=== PATIENT | female | born 1985 | race American Indian/Alaskan Native ===

== ENCOUNTER 2019-02-18 17:15 | Observation (INO) | payer BC ==
[2019-02-18 18:58] LABS: Mean Corpuscular HGB Conc 28 % (30-34); Platelet Count 262 K/mm3 (140-440); Red Blood Count 3.05 M/mm3 (3.65-5.03)
--- NOTE | 2019-02-18 18:59 | Emergency Department Report ---
ED General Adult HPI - General Chief complaint: Recheck/Abnormal Lab/Rx Stated complaint: IRON LOW Time Seen by Provider: 02/18/19 18:50 Source: patient Mode of arrival: Ambulatory Limitations: No Limitations - History of Present Illness Initial comments: Patient is 33 years old female with no significant past medical history. Patient stated that she went to have a physical exam at her new primary care physician physician. Patient found to have a hemoglobin of 4.4 and patient sent and strayed from her primary care physician to the ER for further evaluation. Patient denies stated that she is having trouble with her cycle. She stated that her sciatica Continuum between 8-10 days, heavy associated with pelvic area cramping. Patient currently denying any chest pain but she stated that she usually get out of breath when she walk for a minute. Patient denied any hematemesis, melena or hematochezia. No hemoptysis or hematuria. - Related Data Home Medications Medication Instructions Recorded Confirmed Last Taken No Known Home Medications [No 02/18/19 02/18/19 Unknown Reported Home Medications] Allergies Allergy/AdvReac Type Severity Reaction Status Date / Time No Known Allergies Allergy Unverified 02/18/19 17:27 ED Review of Systems ROS: Stated complaint: IRON LOW Other details as noted in HPI Comment: All other systems reviewed and negative Constitutional: denies: chills, fever Respiratory: shortness of breath Cardiovascular: denies: chest pain, palpitations Gastrointestinal: denies: abdominal pain, nausea, vomiting, hematemesis, melena, hematochezia Genitourinary: abnormal menses. denies: urgency, dysuria, frequency, hematuria, discharge Musculoskeletal: denies: back pain Neurological: denies: headache, weakness, numbness, paresthesias, confusion, abnormal gait ED Past Medical Hx - Past Medical History Previous Medical History?: No - Surgical History Past Surgical History?: No - Social History Smoking Status: Never Smoker Substance Use Type: None - Medications Home Medications: Home Medications Medication Instructions Recorded Confirmed Last Taken Type No Known Home Medications [No 02/18/19 02/18/19 Unknown History Reported Home Medications] ED Physical Exam - General Limitations: No Limitations General appearance: alert, in no apparent distress - Head Head exam: Present: atraumatic, normocephalic, normal inspection - Eye Eye exam: Present: other (pale conjuctiva) - ENT ENT exam: Present: normal exam, normal orophraynx, mucous membranes moist - Neck Neck exam: Present: normal inspection, full ROM. Absent: tenderness, meningismus, lymphadenopathy, thyromegaly - Respiratory Respiratory exam: Present: normal lung sounds bilaterally - Cardiovascular Cardiovascular Exam: Present: regular rate, normal rhythm, normal heart sounds - GI/Abdominal GI/Abdominal exam: Present: soft, normal bowel sounds. Absent: distended, tenderness, guarding, rebound, rigid, organomegaly, mass, bruit, pulsatile mass, hernia - Extremities Exam Extremities exam: Present: normal inspection, full ROM, normal capillary refill. Absent: tenderness, pedal edema, calf tenderness - Back Exam Back exam: Present: normal inspection, full ROM. Absent: tenderness, CVA tenderness (R), CVA tenderness (L), muscle spasm, paraspinal tenderness, vertebral tenderness - Neurological Exam Neurological exam: Present: alert, oriented X3, CN II-XII intact, normal gait, reflexes normal - Psychiatric Psychiatric exam: Present: normal mood - Skin Skin exam: Present: warm, intact, normal color ED Course Vital Signs 02/18/19 02/18/19 02/18/19 17:52 19:05 21:01 Temperature 98.5 F 98.2 F 98.5 F Pulse Rate 88 83 87 Respiratory 16 19 21 Rate Blood Pressure 118/67 129/70 Blood Pressure 125/65 [Left] O2 Sat by Pulse 100 99 100 Oximetry 02/18/19 02/18/19 02/18/19 21:15 21:16 21:31 Temperature 98.2 F 98.2 F Pulse Rate 80 82 84 Respiratory 16 21 18 Rate Blood Pressure 127/61 127/61 124/69 Blood Pressure [Left] O2 Sat by Pulse 100 100 100 Oximetry 02/18/19 02/18/19 02/18/19 21:45 22:01 22:15 Temperature Pulse Rate 82 92 H 91 H Respiratory 25 H 14 17 Rate Blood Pressure 133/83 132/100 135/75 Blood Pressure [Left] O2 Sat by Pulse 100 99 100 Oximetry 02/18/19 02/18/19 02/18/19 22:21 22:30 22:35 Temperature 98.2 F 98.8 F Pulse Rate 92 H 94 H 92 H Respiratory 35 H 15 18 Rate Blood Pressure 135/75 133/83 110/87 Blood Pressure 133/83 [Left] O2 Sat by Pulse 99 99 100 Oximetry ED Medical Decision Making - Lab Data Result diagrams: 02/18/19 18:32 02/18/19 18:32 - Radiology Data Radiology results: report reviewed Referring Physician: CIERA SUAREZ Patient Name: CARRIE WEBB Date of : 1985 Sex: Female Report Date: 2019-02-18 Report Status: [place] [address] Ultrasound Report Signed Patient: CARRIE WEBB MR#: [id number] : 1985 Acct:[id number] Age/Sex: 33 / F ADM Date: 02/18/19 Loc: ED Attending Dr: Ordering Physician: CIERA SUAREZ Date of Service: 02/18/19 Procedure(s): US pelvic complete Accession Number(s): [id number] cc: CIERA SUAREZ Pelvic ultrasound complete INDICATION: Pelvic pain FINDINGS: There is a large 8.0 cm well-circumscribed lesion arising from the left upper aspect of the uterine fundus. Some internal Doppler flow noted. Both ovaries appear normal with normal Doppler flow. Minimal free pelvic fluid is likely physiologic IMPRESSION: Large 8 cm fibroid within the left upper aspect of the uterine fundus, as above Signer Name: Glynn Claros MD Signed: 02/18/2019 8:35 PM Workstation Name: [id number] Transcribed By: BC Dictated By: Glynn Claros MD Electronically Authenticated By: Glynn Claros MD Signed Date/Time: 02/18/192034 DD/ 28 TD/TT: - Medical Decision Making Patient is 33 years old female with no significant past medical history. Patient stated that she went to have a physical exam at her new primary care physician orthopedist. Patient found to have a hemoglobin of 4.4 and patient sent and strayed from her primary care physician to the ER for further evaluation. Patient denies stated that she is having trouble with her cycle. She stated that her sciatica Continuum between 8-10 days, heavy associated with pelvic area cramping. Patient currently denying any chest pain but she stated that she usually get out of breath when she walk for a minute. Patient denied any hematemesis, melena or hematochezia. No hemoptysis or hematuria. Patient H&H is 4.6. Patient received 1 units of PRBC. Pelvic ultrasound showed 8 centimeter fibroid. Patient is not actively bleeding now. I discussed the patient with Dr. Sylvia Feliciano, she agreed to admit the patient to medical service. Critical Care Time: Yes Critical care time in (mins) excluding proc time.: 30 Critical care attestation.: If time is entered above; I have spent that time in minutes in the direct care of this critically ill patient, excluding procedure time. ED Disposition Clinical Impression: Acute blood loss anemia Disposition: DC09 OP ADMIT IP TO THIS HOSP Is pt being admited?: Yes Condition: Stable
[2019-02-18 19:10] LABS: Hematocrit 16.6 % (30.3-42.9); Hemoglobin 4.6 gm/dl (10.1-14.3); Mean Corpuscular Volume 54 fl (79-97); Red Cell Distribution Width 23.6 % (13.2-15.2)
[2019-02-18] MEDS ORDERED: SODIUM CHLORIDE 0.9% 500 ML 500 ML IV ONE ×2 (19:20→22:12)
[2019-02-18 19:21] LABS: Alanine Aminotransferase 12 units/L (7-56); Albumin 4.1 g/dL (3.9-5); BUN/Creatinine Ratio 14; Blood Urea Nitrogen 7 mg/dL (7-17); Calcium 9.1 mg/dL (8.4-10.2); Hemolysis Index 2
[2019-02-18 19:58] LABS: HCG Qualitative,Urine Negative (Negative)
[2019-02-18 20:01] LABS: Bacteria,Urine 1+ /HPF (Negative); Bilirubin,Urine NEG (Negative); Blood,Urine NEG (Negative); Color,Urine Straw (Yellow); Mucus,Urine FEW /HPF; Protein,Urine <15 mg/dL mg/dL (Negative); Urobilinogen,Urine < 2.0 mg/dL (<2.0)
--- NOTE | 2019-02-18 20:40 | Ultrasound Report ---
Pelvic ultrasound complete INDICATION: Pelvic pain FINDINGS: There is a large 8.0 cm well-circumscribed lesion arising from the left upper aspect of the uterine fundus. Some internal Doppler flow noted. Both ovaries appear normal with normal Doppler myah w. Minimal free pelvic fluid is likely physiologic IMPRESSION: Large 8 cm fibroid within the left upper aspect of the uterine fundus, as above Signer Name: Glynn Claors MD Signed: 02/18/2019 8:35 PM Workstation Name: [id number]
[2019-02-18 21:08] LABS: INR 1.04 (0.87-1.13)
[2019-02-18 21:23] LABS: INR 1.03 (0.87-1.13); Partial Thromboplastin Time 22.6 Sec. (24.2-36.6)
--- NOTE | 2019-02-18 22:14 | History and Physical Report ---
History of Present Illness Date of examination: 02/18/19 History of present illness: 33-year-old woman with no medical problems was sent to the emergency room for evaluation of anemia. Her blood count in her primary care's office was 4.4. Patient state that over the last 4 months she's been having shortness of breath, dyspnea on exertion, tired. She menstrual flow last from 4-10 days, sometimes bleed between cycle Review Of Systems: Constitutional: no weight loss, fever, chills Ears, eyes, nose, mouth and throat: no nasal congestion, no nasal discharge, no sinus pressure, blurry vision, diplopia Neck: No neck pain or rigidity. Cardiovascular: No palpitations, chest pain Respiratory: No cough Gastrointestinal: No hematochezia, abdominal pain Genitourinary : no dysuria, frequency , hematuria Musculoskeletal: no muscle ache , joint pain Integumentary: no rash, no pruritis Neurological: no parathesias, focal weakness Endocrine: no cold or heat intolerance, no polyuria or polydipsia Hematologic/Lymphatic: no easy bruising, no easy bleeding, no gland swelling Allergic/Immunologic: no urticaria, no angioedema. PAST MEDICAL HISTORY:None PAST SURGICAL HISTORY:None FAMILY HISTORY:hypertension, diabetes SOCIAL HISTORY: Denies tobacco, +marijuana, no alcohol Medications and Allergies Allergies Allergy/AdvReac Type Severity Reaction Status Date / Time No Known Allergies Allergy Unverified 02/18/19 17:27 Home Medications Medication Instructions Recorded Confirmed Last Taken Type No Known Home Medications [No 02/18/19 02/18/19 Unknown History Reported Home Medications] Exam - Physical Exam Narrative exam: General Apperance: The patient sitting in bed no acute distress HEENT: Normocephalic, atraumatic. Pupils equally round and reactive to light, extraocular movement intact, and no sclericterus or JVD or thyromegaly or nodule. Neck supple, no carotid bruit, mucous membranes moist, no exudate or erythema Heart: S1-S2, regular is rhythm Lungs: Clear to auscultation bilaterally, breathing comfortable Abdomen: Positive bowel sounds, soft, nontender, nondistended, no organomegaly Extremities: No edema cyanosis clubbing Skin: no rash, nodule, warm and dry Neuro:CN 2 -12 intact, motor/sensory intact, speech is fluent - Constitutional Vitals: Temp Pulse Resp BP Pulse Ox 98.2 F 81 21 124/69 100 02/18/19 21:31 02/18/19 21:31 02/18/19 21:31 02/18/19 21:31 02/18/19 21:31 Results - Labs CBC & Chem 7: 02/18/19 18:32 02/18/19 18:32 Labs: Abnormal lab results 02/18/19 02/18/19 02/18/19 Range/Units 18:32 18:32 18:39 RBC 3.05 L (3.65-5.03) M/mm3 Hgb 4.6 L* (10.1-14.3) gm/dl Hct 16.6 L* (30.3-42.9) % MCV 54 L (79-97) fl MCH 15 L (28-32) pg MCHC 28 L (30-34) % RDW 23.6 H (13.2-15.2) % APTT (24.2-36.6) Sec. Carbon Dioxide 20 L (22-30) mmol/L Creatinine 0.5 L (0.7-1.2) mg/dL Crossmatch See Detail 02/18/19 02/18/19 Range/Units 20:41 20:41 RBC (3.65-5.03) M/mm3 Hgb (10.1-14.3) gm/dl Hct (30.3-42.9) % MCV (79-97) fl MCH (28-32) pg MCHC (30-34) % RDW (13.2-15.2) % APTT 22.6 L 23.0 L (24.2-36.6) Sec. Carbon Dioxide (22-30) mmol/L Creatinine (0.7-1.2) mg/dL Crossmatch Assessment and Plan pelvic US reviewed Assessment Symptomatic anemia Menorrhagia Plan Admit to medicine Transfuse blood, consult STREET VENDOR DVT prophalaxis
[2019-02-18] MEDS ORDERED: ONDANSETRON 4 MG/2 ML INJ IV PRN (23:05)
[2019-02-18] MEDS ORDERED: ACETAMINOPHEN 325 MG TAB PO PRN (23:05)
[2019-02-18] MEDS ORDERED: ZOLPIDEM 5 MG TAB PO PRN (23:07)
[2019-02-18] MEDS ORDERED: diphenhydrAMINE 50 MG/ML VIAL IV PRN (23:07)
[2019-02-19 10:33] LABS: Mean Corpuscular HGB Conc 29 % (30-34); Platelet Count 283 K/mm3 (140-440); Red Blood Count 4.18 M/mm3 (3.65-5.03)
[2019-02-19 10:35] LABS: Hemoglobin 7.5 gm/dl (10.1-14.3); Mean Corpuscular Volume 62 fl (79-97)
[2019-02-19 10:47] LABS: BUN/Creatinine Ratio 16; Blood Urea Nitrogen 8 mg/dL (7-17); Calcium 9.1 mg/dL (8.4-10.2); Hemolysis Index 12
[2019-02-19 12:25] LABS: Anisocytosis 3+; Basophils % (Manual) 0 % (0.0-1.8); Hypochromasia 3+; Platelet Estimate Consistent w Auto; Tear Drop Cells Few; Total Cells Counted 100
[2019-02-19 13:21] VITALS: BP 120/66
--- NOTE | 2019-02-19 13:58 | Progress Note ---
Assessment and Plan Assessment and plan: Severe symptomatic anemia due to menorrhagia - Patient was transfused with 2 units of blood and hemoglobin this morning 7.5 admission hemoglobin was 4.6 - Continue to monitor, iron tablets Menorrhagia due to uterine fibroids - Pelvic ultrasound showed 8 cm fibroid - FLOOR WAXER consulted DVT prophylaxis - SCDs because of severe anemia/menorrhagia Disposition - Possible discharge if cleared by PRODUCE DEPARTMENT SUPERVISOR History Interval history: Patient was seen and evaluated this morning. She didn't have any complaints. Hospitalist Physical - Physical exam Narrative exam: Not in cardiopulmonary distress. The patient is obese. Vital signs as documented. Head exam is unremarkable. No scleral icterus . Neck is without jugular venous distension, thyromegaly, or carotid bruits. Lungs are clear to auscultation. Cardiac exam reveals regular rate and Rhythm. First and second heart sounds normal. No murmurs, rubs or gallops. Abdominal exam reveals normal bowel sounds, no masses, no organomegaly and no aortic enlargement. Extremities are nonedematous and both femoral and pedal pulses are normal. DIRECTOR MOBILE MEDIA SOLUTIONS: Alert and oriented 3. No focal weakness. - Constitutional Vitals: Temp Pulse Resp BP Pulse Ox 97.7 F 76 20 120/66 99 02/19/19 11:28 02/19/19 11:28 02/19/19 11:28 02/19/19 11:28 02/19/19 11:28 Results - Labs CBC & Chem 7: 02/19/19 09:39 02/19/19 09:39 Labs: Laboratory Last Values WBC 6.9 K/mm3 (4.5-11.0) 02/19/19 09:39 RBC 4.18 M/mm3 (3.65-5.03) 02/19/19 09:39 Hgb 7.5 gm/dl (10.1-14.3) L 02/19/19 09:39 Hct 26.0 % (30.3-42.9) L D 02/19/19 09:39 MCV 62 fl (79-97) L 02/19/19 09:39 MCH 18 pg (28-32) L 02/19/19 09:39 MCHC 29 % (30-34) L 02/19/19 09:39 RDW 32.0 % (13.2-15.2) H 02/19/19 09:39 Plt Count 283 K/mm3 (140-440) 02/19/19 09:39 Lymph % (Auto) [employer] Processing Factory Worker 02/19/19 09:39 [place] % (Auto) [employer] Factory Worker 02/19/19 09:39 Eos % (Auto) [employer] Worker 02/19/19 09:39 Baso % (Auto) [employer] Worker 02/19/19 09:39 Lymph # [employer] Worker 02/19/19 09:39 [place] # [employer] Factory Worker 02/19/19 09:39 Eos # [employer] Factory Worker 02/19/19 09:39 Baso # [employer] Worker 02/19/19 09:39 Add Manual Diff Complete 02/19/19 09:39 Total Counted 100 02/19/19 09:39 Seg Neutrophils % [employer] Factory Worker 02/19/19 09:39 Seg Neuts % (Manual) 65.0 % (40.0-70.0) 02/19/19 09:39 0 % 02/19/19 09:39 27.0 % (13.4-35.0) 02/19/19 09:39 Reactive Lymphs % (Man) 0 % 02/19/19 09:39 7.0 % (0.0-7.3) 02/19/19 09:39 1.0 % (0.0-4.3) 02/19/19 09:39 0 % (0.0-1.8) 02/19/19 09:39 0 % 02/19/19 09:39 0 % 02/19/19 09:39 0 % 02/19/19 09:39 0 % 02/19/19 09:39 Nucleated RBC % Not Reportable 02/19/19 09:39 Seg Neutrophils # [employer] Worker 02/19/19 09:39 Seg Neutrophils # Man 4.5 K/mm3 (1.8-7.7) 02/19/19 09:39 Band Neutrophils # 0.0 K/mm3 02/19/19 09:39 1.9 K/mm3 (1.2-5.4) 02/19/19 09:39 Abs React Lymphs (Man) 0.0 K/mm3 02/19/19 09:39 0.5 K/mm3 (0.0-0.8) 02/19/19 09:39 0.1 K/mm3 (0.0-0.4) 02/19/19 09:39 0.0 K/mm3 (0.0-0.1) 02/19/19 09:39 0.0 K/mm3 02/19/19 09:39 0.0 K/mm3 02/19/19 09:39 0.0 K/mm3 02/19/19 09:39 Blast Cells # 0.0 K/mm3 02/19/19 09:39 WBC Morphology Not Reportable 02/19/19 09:39 Hypersegmented Neuts Not Reportable 02/19/19 09:39 Hyposegmented Neuts Not Reportable 02/19/19 09:39 Hypogranular Neuts Not Reportable 02/19/19 09:39 Not Reportable 02/19/19 09:39 Not Reportable 02/19/19 09:39 Not Reportable 02/19/19 09:39 Not Reportable 02/19/19 09:39 Not Reportable 02/19/19 09:39 Not Reportable 02/19/19 09:39 Consistent w auto 02/19/19 09:39 Not Reportable 02/19/19 09:39 Plt Clumps, EDTA Not Reportable 02/19/19 09:39 Not Reportable 02/19/19 09:39 Not Reportable 02/19/19 09:39 Not Reportable 02/19/19 09:39 Plt Morphology Comment Not Reportable 02/19/19 09:39 RBC Morphology Not Reportable 02/19/19 09:39 Dimorphic RBCs Not Reportable 02/19/19 09:39 Not Reportable 02/19/19 09:39 3+ 02/19/19 09:39 Not Reportable 02/19/19 09:39 3+ 02/19/19 09:39 2+ 02/19/19 09:39 Not Reportable 02/19/19 09:39 Not Reportable 02/19/19 09:39 Not Reportable 02/19/19 09:39 Not Reportable 02/19/19 09:39 Not Reportable 02/19/19 09:39 Few 02/19/19 09:39 Not Reportable 02/19/19 09:39 Not Reportable 02/19/19 09:39 Not Reportable 02/19/19 09:39 Not Reportable 02/19/19 09:39 Not Reportable 02/19/19 09:39 Not Reportable 02/19/19 09:39 Not Reportable 02/19/19 09:39 Few 02/19/19 09:39 Acanthocytes (Spur) Not Reportable 02/19/19 09:39 Rouleaux Not Reportable 02/19/19 09:39 Not Reportable 02/19/19 09:39 Not Reportable 02/19/19 09:39 Not Reportable 02/19/19 09:39 Not Reportable 02/19/19 09:39 Hem Pathologist Commnt No 02/19/19 09:39 PT 13.2 Sec. (12.2-14.9) 02/18/19 20:41 PT 13.3 Sec. (12.2-14.9) 02/18/19 20:41 INR 1.03 (0.87-1.13) 02/18/19 20:41 INR 1.04 (0.87-1.13) 02/18/19 20:41 APTT 22.6 Sec. (24.2-36.6) L 02/18/19 20:41 APTT 23.0 Sec. (24.2-36.6) L 02/18/19 20:41 Sodium 144 mmol/L (137-145) D 02/19/19 09:39 Potassium 3.8 mmol/L (3.6-5.0) 02/19/19 09:39 Chloride 108.4 mmol/L (98-107) H 02/19/19 09:39 Carbon Dioxide 17 mmol/L (22-30) L 02/19/19 09:39 22 mmol/L 02/19/19 09:39 BUN 8 mg/dL (7-17) 02/19/19 09:39 0.5 mg/dL (0.7-1.2) L 02/19/19 09:39 Estimated GFR > 60 ml/min 02/19/19 09:39 16 % 02/19/19 09:39 Glucose 116 mg/dL (65-100) H 02/19/19 09:39 Calcium 9.1 mg/dL (8.4-10.2) 02/19/19 09:39 0.80 mg/dL (0.1-1.2) 02/18/19 18:32 AST 19 units/L (5-40) 02/18/19 18:32 ALT 12 units/L (7-56) 02/18/19 18:32 38 units/L (35-129) 02/18/19 18:32 7.5 g/dL (6.3-8.2) 02/18/19 18:32 4.1 g/dL (3.9-5) 02/18/19 18:32 1.2 % 02/18/19 18:32 Straw (Yellow) 02/18/19 18:35 Clear (Clear) 02/18/19 18:35 6.0 (5.0-7.0) 02/18/19 18:35 Ur Specific [place] 1.009 (1.003-1.030) 02/18/19 18:35 <15 mg/dl mg/dL (Negative) 02/18/19 18:35 Neg mg/dL (Negative) 02/18/19 18:35 Neg mg/dL (Negative) 02/18/19 18:35 Neg (Negative) 02/18/19 18:35 Neg (Negative) 02/18/19 18:35 Ur Reducing Substances Not Reportable 02/18/19 18:35 Neg (Negative) 02/18/19 18:35 Not Reportable 02/18/19 18:35 < 2.0 mg/dL (<2.0) 02/18/19 18:35 Ur Leukocyte Esterase Sm (Negative) 02/18/19 18:35 3.0 /HPF (0.0-6.0) 02/18/19 18:35 1.0 /HPF (0.0-6.0) 02/18/19 18:35 U Epithel Cells (Auto) 3.0 /HPF (0-13.0) 02/18/19 18:35 1+ /HPF (Negative) 02/18/19 18:35 Few /HPF 02/18/19 18:35 Urine HCG, Qual Negative (Negative) 02/18/19 18:35 Blood Type B POSITIVE 02/18/19 18:39 Antibody Screen Negative 02/18/19 18:39 Crossmatch See Detail 02/18/19 18:39 Active Medications - Current Medications Current Medications: Generic Name Dose Route Start Last Admin Trade Name Freq PRN Reason Stop Dose Admin Acetaminophen 650 mg 02/18/19 23:05 02/19/19 00:40 Tylenol PO 650 mg Q4H PRN Administration Pain MILD(1-3)/Fever >100.5/BANSAL Diphenhydramine HCl 25 mg 02/18/19 23:07 Benadryl IV Q6H PRN Itching Ferrous Sulfate 325 mg 02/19/19 14:00 Feosol PO TID KAI Ondansetron HCl 4 mg 02/18/19 23:05 Zofran IV Q8H PRN Nausea And Vomiting Sodium Chloride 10 ml 02/19/19 10:00 Sodium Chloride Flush Syringe 10 Ml IV BID KAI Sodium Chloride 10 ml 02/18/19 23:05 Sodium Chloride Flush Syringe 10 Ml IV PRN PRN LINE FLUSH Zolpidem Tartrate 5 mg 02/18/19 23:07 Ambien PO QHS PRN Sleep
[2019-02-19] MEDS ORDERED: FERROUS SULFATE 325 MG TAB PO SCH (14:00)
--- NOTE | 2019-02-19 15:30 | Discharge Summary ---
Providers - Providers Date of Admission: 02/18/19 22:11 Date of discharge: 02/19/19 Attending physician: PLACIDO WOOD MD 02/18/19 23:05 Consult to Physician [CONS] Routine Comment: Consulting Provider: EDMAR GOMEZ Physician Instructions: Reason For Exam: menorrhagia/fibroid/ Primary care physician: COLON AND RECTAL SURGEON Hospitalization Reason for admission: severe anemia, menorrhagia secondary to uterine fibroid Condition: Stable Pertinent studies: Pelvic ultrasound Hospital course: 33-year-old -[place] female with medical history significant for menorrhagia was presented to the emergency department for the complaints of shortness of breath, leg swelling, dizziness. In the emergency department hemoglobin was 4.6. She was transfused 2 units of blood and post transfusion hemoglobin was 7.5. Patient's symptoms resolved. Pelvic ultrasound was done and showed 8 cm uterine fibroid. SCRIPT COORDINATOR was consulted and recommendations appreciated. Patient is hemodynamically stable and cleared for discharge by the INTERACTIVE DESIGNER. Appropriate medication scripts were given as the time of discharge. Patient's concerns and questions were addressed to the bedside. Disposition: DC-01 TO HOME OR SELFCARE Time spent for discharge: 32 minutes - Discharge Diagnoses (1) Acute blood loss anemia Status: Acute Core Measure Documentation - Palliative Care Palliative Care/ Comfort Measures: Not Applicable - Core Measures Any of the following diagnoses?: none Exam - Physical Exam Narrative exam: Not in cardiopulmonary distress. The patient is obese. Vital signs as documented. Head exam is unremarkable. No scleral icterus . Neck is without jugular venous distension, thyromegaly, or carotid bruits. Lungs are clear to auscultation. Cardiac exam reveals regular rate and Rhythm. First and second heart sounds normal. No murmurs, rubs or gallops. Abdominal exam reveals normal bowel sounds, no masses, no organomegaly and no aortic enlargement. Extremities are nonedematous and both femoral and pedal pulses are normal. HUMAN RESOURCES TRAINING MANAGER: Alert and oriented 3. No focal weakness. - Constitutional Vitals: Temp Pulse Resp BP Pulse Ox 97.7 F 76 20 120/66 99 02/19/19 11:28 02/19/19 11:28 02/19/19 11:28 02/19/19 11:28 02/19/19 11:28 Plan Activity: no restrictions Weight Bearing Status: Full Weight Bearing Diet: regular Follow up with: PRIMARY CAREMD [Primary Care Provider] - 7 Days
--- NOTE | 2019-02-19 15:37 | Consultation ---
History of Present Illness Consult date: 02/19/19 Reason for consult: menorrhagia History of present illness: This is a 33-year-old female 0 who presents with a long-standing history of menorrhagia. Patient states she started having heavy menstrual cycles approximately 10 years ago. Her cycles occur every 23-28 days however she bleeds 4-10 days with 3-4 heavy days. She presented to her primary care physician for evaluation and was noted to have a hemoglobin 4.4 and was sent immediately to the emergency room for evaluation. Ultrasound revealed an 8 cm fibroid. Patient states she is currently attempting to get . Since she's never been on hormonal therapy for bleeding she had any evaluation for the heavy bleeding. 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 denies: abnormal PAP smear, chlamydia, gonorrhea, hepatitis B, hepatitis C, herpes, HIV, syphilis Social history: smoking Medications and Allergies Allergies Allergy/AdvReac Type Severity Reaction Status Date / Time No Known Allergies Allergy Unverified 02/18/19 17:27 Home Medications Medication Instructions Recorded Confirmed Last Taken Type Ferrous Sulfate [Feosol 325 MG tab] 325 mg PO DAILY #90 tablet 02/19/19 Unknown Rx 147/Iron/Folic Acid 1 each PO DAILY #90 tablet 02/19/19 Unknown Rx [Azesco Tablet] Tranexamic Acid [Lysteda] 1,300 mg PO TID #30 tab 02/19/19 Unknown Rx Tranexamic Acid [Lysteda] 1,300 mg PO TID #30 tab 02/19/19 Unknown Rx Active Meds: Active Medications Acetaminophen (Tylenol) 650 mg PO Q4H PRN PRN Reason: Pain MILD(1-3)/Fever >100.5/BANSAL Last Admin: 02/19/19 00:40 Dose: 650 mg Documented by: Diphenhydramine HCl (Benadryl) 25 mg IV Q6H PRN PRN Reason: Itching Ferrous Sulfate (Feosol) 325 mg PO TID KAI Last Admin: 02/19/19 14:32 Dose: 325 mg Documented by: Ondansetron HCl (Zofran) 4 mg IV Q8H PRN PRN Reason: Nausea And Vomiting Sodium Chloride (Sodium Chloride Flush Syringe 10 Ml) 10 ml IV BID KAI Last Admin: 02/19/19 14:33 Dose: 10 ml Documented by: Sodium Chloride (Sodium Chloride Flush Syringe 10 Ml) 10 ml IV PRN PRN PRN Reason: LINE FLUSH Zolpidem Tartrate (Ambien) 5 mg PO QHS PRN PRN Reason: Sleep Review of Systems All systems: negative - Vital Signs Vital signs: Vital Signs Temp Pulse Resp BP Pulse Ox 98.5 F 88 16 118/67 100 02/18/19 17:52 02/18/19 17:52 02/18/19 17:52 02/18/19 17:52 02/18/19 17:52 Temp Pulse Resp BP Pulse Ox 97.7 F 76 20 120/66 99 02/19/19 11:28 02/19/19 11:28 02/19/19 11:28 02/19/19 11:28 02/19/19 11:28 Results Result Diagrams: 02/19/19 09:39 02/19/19 09:39 Abnormal lab results 02/18/19 02/18/19 02/18/19 Range/Units 18:32 18:32 18:39 RBC 3.05 L (3.65-5.03) M/mm3 Hgb 4.6 L* (10.1-14.3) gm/dl Hct 16.6 L* (30.3-42.9) % MCV 54 L (79-97) fl MCH 15 L (28-32) pg MCHC 28 L (30-34) % RDW 23.6 H (13.2-15.2) % APTT (24.2-36.6) Sec. Chloride (98-107) mmol/L Carbon Dioxide 20 L (22-30) mmol/L Creatinine 0.5 L (0.7-1.2) mg/dL Glucose (65-100) mg/dL Crossmatch See Detail 02/18/19 02/18/19 02/19/19 Range/Units 20:41 20:41 09:39 RBC (3.65-5.03) M/mm3 Hgb 7.5 L (10.1-14.3) gm/dl Hct 26.0 L D (30.3-42.9) % MCV 62 L (79-97) fl MCH 18 L (28-32) pg MCHC 29 L (30-34) % RDW 32.0 H (13.2-15.2) % APTT 22.6 L 23.0 L (24.2-36.6) Sec. Chloride (98-107) mmol/L Carbon Dioxide (22-30) mmol/L Creatinine (0.7-1.2) mg/dL Glucose (65-100) mg/dL Crossmatch 02/19/19 Range/Units 09:39 RBC (3.65-5.03) M/mm3 Hgb (10.1-14.3) gm/dl Hct (30.3-42.9) % MCV (79-97) fl MCH (28-32) pg MCHC (30-34) % RDW (13.2-15.2) % APTT (24.2-36.6) Sec. Chloride 108.4 H (98-107) mmol/L Carbon Dioxide 17 L (22-30) mmol/L Creatinine 0.5 L (0.7-1.2) mg/dL Glucose 116 H (65-100) mg/dL Crossmatch All other labs normal. Assessment and Plan Assessment: 1. Menorrhagia with occasional intermenstrual bleeding 2. Uterine fibroid 3. Infertility 4. Vitamins index 44 Plan 1. Agree with discharge home. Start Lysteda as directed as well as iron and vitamins. Patient is instructed to follow-up in our office for endometrial biopsy and further evaluation for menorrhagia and infertility. Plan of care was extensively discussed patient and her . Questions were encouraged and answered. She voiced understanding and desires to proceed with this current course of care.
== END 2019-02-19 17:30 | disposition home or self-care (01) ==
LOC: ED 17:15 → 3A 22:11
PROVIDERS: ADMIT Internal Medicine; ATTEND Internal Medicine
DX: D62 Acute posthemorrhagic anemia (principal); N92.0 Excessive and frequent menstruation with regular cycle; F12.10 Cannabis abuse, uncomplicated
CPT/HCPCS: 36415; 36430; 76856; 80048; 80053; 81001; 81025; 85007; 85025; 85027; 85610; 85730; 86850; 86900; 86901; 86920; 99291; G0378; J7040; P9016

== ENCOUNTER 2021-07-15 10:10 | Inpatient (IN) | payer BC, OTHER ==
[2021-07-15] MEDS ORDERED: fentaNYL 100 MCG/2 ML INJ IV ONE (10:14)
[2021-07-15] MEDS ORDERED: ASPIRIN 325 MG TAB PO ONE (10:14)
[2021-07-15] MEDS ORDERED: ONDANSETRON 4 MG/2 ML INJ IV ONE (10:14)
[2021-07-15] MEDS ORDERED: NITROGLYCERIN 2% OINT 1 GM TP ONE (10:14)
--- NOTE | 2021-07-15 10:22 | Emergency Department Report ---
HPI - General Time Seen by Provider: 07/15/21 10:13 - HPI HPI: Room 22 The patient is a 35-year-old female present with a chief complaint of chest pain. Patient states she developed some left-sided chest pain yesterday but it resolved. Patient states this morning she again developed substernal chest pain while at rest in addition to shortness of breath. Patient denies naus ea/vomiting or diaphoresis with the pain. Patient denies history of cough or fever. Patient denies having any past medical history and states he is never had a stress test or cardiac catheterization. Patient denies red blood per rectum or melena. Patient admits to heavy cycles going through 5-6 pads per day and on average lasting 5 to 6 days. Patient states her last cycle occurred 07/11/2021 ED Past Medical Hx - Past Medical History Previous Medical History?: No - Surgical History Past Surgical History?: No - Family History Family history: no significant - Social History Smoking Status: Never Smoker Substance Use Type: None - Medications Home Medications: Home Medications Medication Instructions Recorded Confirmed Last Taken Type Ferrous Sulfate [Feosol 325 MG tab] 325 mg PO DAILY #90 tablet 02/19/19 Unknown Rx 147/Iron/Folic Acid 1 each PO DAILY #90 tablet 02/19/19 Unknown Rx [Azesco Tablet] Tranexamic Acid [Lysteda] 1,300 mg PO TID #30 tab 02/19/19 Unknown Rx Tranexamic Acid [Lysteda] 1,300 mg PO TID #30 tab 02/19/19 Unknown Rx ED Review of Systems ROS: Stated complaint: chest pain Other details as noted in HPI Constitutional: denies: diaphoresis, fever Eyes: denies: eye pain ENT: denies: throat pain Respiratory: shortness of breath. denies: cough Cardiovascular: chest pain Endocrine: no symptoms reported Gastrointestinal: denies: nausea, vomiting Genitourinary: denies: dysuria Musculoskeletal: denies: back pain Neurological: denies: headache Physical Exam - Physical Exam Vital Signs: Vital Signs 07/15/21 10:12 Pulse Rate 110 H Respiratory 24 Rate Blood Pressure 150/87 [Left] O2 Sat by Pulse 97 Oximetry Physical Exam: GENERAL: The patient is well-developed well-nourished female lying on stretcher appearing to be in moderate discomfort. Hyperventilating. Very anxious HEENT: Normocephalic. Atraumatic. Extraocular motions are intact. Patient has moist mucous membranes. NECK: Supple. Trachea midline CHEST/LUNGS: Clear to auscultation. Hyperventilation HEART/CARDIOVASCULAR: Regular. There is tachycardia. There is no gallop rub or murmur. ABDOMEN: Abdomen is soft, nontender. Patient has normal bowel sounds. There is no abdominal distention. SKIN: There is no rash. There is 1+ bilateral lower extremity pitting edema. There is no diaphoresis. NEURO: The patient is awake, alert, and oriented. The patient is cooperative. The patient has no focal neurologic deficits. The patient has normal speech. GCS 15. Patient very anxious MUSCULOSKELETAL: There is no evidence of acute injury. RECTAL: Guaiac negative ED Course Vital Signs 07/15/21 10:12 Pulse Rate 110 H Respiratory 24 Rate Blood Pressure 150/87 [Left] O2 Sat by Pulse 97 Oximetry ED Medical Decision Making - Lab Data Result diagrams: 07/15/21 10:28 07/15/21 10:28 - EKG Data -: EKG Interpreted by Me EKG shows normal: sinus rhythm Rate: tachycardia (101 bpm) - EKG Data When compared to previous EKG there are: previous EKG unavailable Interpretation: other (No ischemic changes seen) - Radiology Data Radiology results: pending (V/Q scan), report reviewed (Chest x-ray), image reviewed (Chest x-ray) interpreted by me: Chest x-ray-mild cephalization. No pneumothorax [facility] [address] [place] [address] XRay Report Signed Patient: CARRIE WEBB MR#: [id number] : 1985 Acct:[id number] Age/Sex: 35 / F ADM Date: 07/15/21 Loc: ED Attending Dr: Ordering Physician: SHANKAR LONG MD Date of Service: 07/15/21 Procedure(s): XR chest 1V ap Accession Number(s): [id number] cc: SHANKAR LONG MD Fluoro Time In Minutes: CHEST 1 VIEW 07/15/2021 10:22 AM INDICATION / CLINICAL INFORMATION: chest pain. COMPARISON: None available. FINDINGS: SUPPORT DEVICES: None. HEART / MEDIASTINUM: No significant abnormality. LUNGS / PLEURA: No significant pulmonary or pleural abnormality. No pneumothorax. ADDITIONAL FINDINGS: No significant additional findings. IMPRESSION: 1. No acute findings. Signer Name: Archie Pineda MD Signed: 07/15/2021 10:39 AM Workstation Name: [id number] Transcribed By: TL Dictated By: Archie Pineda MD Electronically Authenticated By: Archie Pineda MD Signed Date/Time: 07/15/21 1039 DD/ 1038 TD/TT: Print Cancel - Differential Diagnosis ACS, pericarditis, GERD, PE, CHF Critical care attestation.: If time is entered above; I have spent that time in minutes in the direct care of this critically ill patient, excluding procedure time. ED Disposition Clinical Impression: Chest pain, Symptomatic anemia Disposition: ADMITTED INPATIENT Is pt being admited?: Yes Does the pt Need Aspirin: No Condition: Fair Instructions: Nonspecific Chest Pain, Adult Referrals: PRIMARY CARE, [Primary Care Provider] - 3-5 Days Time of Disposition: 11:43 (Hospitalist called (Dr. Pino))
--- NOTE | 2021-07-15 10:43 | XRay Report ---
CHEST 1 VIEW 07/15/2021 10:22 AM INDICATION / CLINICAL INFORMATION: chest pain. COMPARISON: None available. FINDINGS: SUPPORT DEVICES: None. HEART / MEDIASTINUM: No significant abnormality. LUNGS / PLEURA: No significant pulmonary or pleural abnormality. No pneumothorax. ADDITIONAL FINDINGS: No significant additional findings. IMPRESSION: 1. No acute findings. Signer Name: Archie Pineda MD Signed: 07/15/2021 10:39 AM Workstation Name: [id number]
[2021-07-15 10:54] LABS: Mean Corpuscular HGB Conc 26 % (30-34); Platelet Count 408 K/mm3 (140-440)
[2021-07-15 11:01] LABS: Hemoglobin 3.9 gm/dl (10.1-14.3)
[2021-07-15 11:02] LABS: Hematocrit 15.3 % (30.3-42.9); Mean Corpuscular Volume 53 fl (79-97)
[2021-07-15 11:08] LABS: Blood Urea Nitrogen 7 mg/dL (7-17); Calcium 9.4 mg/dL (8.4-10.2); Creatine Kinase MB 1.1 ng/mL (0.0-4.0); Hemolysis Index 0
[2021-07-15] MEDS ORDERED: SODIUM CHLORIDE 0.9% 500 ML 500 ML IV ONE ×2 (11:09→12:33)
[2021-07-15 11:12] LABS: BUN/Creatinine Ratio 14
[2021-07-15 11:24] LABS: Free T4 (Free Thyroxine) 1.04 ng/dL (0.76-1.46)
[2021-07-15 11:55] LABS: Basophils % (Manual) 0 % (0.0-1.8); Total Cells Counted 100
[2021-07-15 11:56] LABS: Hypochromasia 3+
[2021-07-15 11:57] LABS: Target Cells Few
[2021-07-15 11:58] LABS: Platelet Estimate Consistent w Auto
--- NOTE | 2021-07-15 11:59 | History and Physical Report ---
History of Present Illness Chief complaint: I feel weak, I just cannot do anything, and my chest was hurting History of present illness: 35 YO Female with Anemia Chronic Disease, Menorrhagia, Obesity Hypoventilation Syndrome presents to ED for evaluation. Patient states "I feel weak and I cannot do anything in my chest was hurting". Patient states that she has experienced generalized weakness over the past 1 week with persistent and worsening symptoms over the same timeframe. Patient also reports that she expe rienced a sudden onset of pain on yesterday. Patient states that pain was 6/10, intermittent, persistent, associated with shortness of breath, substernal in nature, nonradiating, worsened with exertion, relieved with rest. EMS was notified and upon arrival the patient was found to be in distress and subsequent transported to [facility] for further care and evaluation of the aforementioned symptoms. The patient was seen and evaluated in the emergency department. All lab and imaging studies reviewed. Patient found to have symptoms consistent with angina, as well as symptomatic anemia secondary to blood loss due to menorrhagia. Patient mated to telemetry and initiated on ACS protocol. Due to patient symptomatic anemia the patient was also treated with packed red blood cell transfusion which was initiated in the emergency department. A VQ scan was ordered by the emergency department physician but is pending at time of admission. Patient denies fever, chills, palpitation, productive cough, skin rash, recent ill contacts, unilateral leg swelling, calf pain, prolonged travel/immobility, individual/family history of DVT/PE/bleeding/blood clotting disorders, or known exposure to COVID-19. No prior admission for review. All medication listed at time of admission has been reconciled. Advanced care planning conducted in ED. Past History Past Medical History: other (See HPI) Past Surgical History: No surgical history, Other (Reviewed) Social history: single. denies: smoking, alcohol abuse, prescription drug abuse Family history: hypertension Medications and Allergies Allergies Allergy/AdvReac Type Severity Reaction Status Date / Time No Known Allergies Allergy Verified 07/15/21 12:38 Home Medications Medication Instructions Recorded Confirmed Last Taken Type Ferrous Sulfate [Feosol 325 MG tab] 325 mg PO DAILY #90 tablet 02/19/19 Unknown Rx 147/Iron/Folic Acid 1 each PO DAILY #90 tablet 02/19/19 Unknown Rx [Azesco Tablet] Tranexamic Acid [Lysteda] 1,300 mg PO TID #30 tab 02/19/19 Unknown Rx Tranexamic Acid [Lysteda] 1,300 mg PO TID #30 tab 02/19/19 Unknown Rx Review of Systems Constitutional: weakness, malaise, no weight loss, no weight gain, no fever Ears, nose, mouth and throat: no ear pain, no tinnitis Cardiovascular: chest pain, shortness of breath, dyspnea on exertion, decreased exercise tolerance Respiratory: no cough, no cough with sputum, no excessive sputum, no hemoptysis Gastrointestinal: no abdominal pain, no nausea, no vomiting, no constipation Genitourinary Female: menorrhagia Rectal: no pain, no incontinence, no bleeding Musculoskeletal: no neck stiffness, no neck pain, no shooting arm pain, no arm numbness/tingling, no low back pain, no shooting leg pain, no redness of joints Integumentary: no rash, no pruritis, no redness, no sores, no wounds, no jaundice Neurological: no head injury, no transient paralysis, no weakness, no parathesias, no numbness, no seizures, no syncope, no tremors Psychiatric: no anxiety, no memory loss, no sleep disturbances, no insomnia, no change in appetite, no change in libido Endocrine: no cold intolerance, no heat intolerance, no excessive thirst, no polydipsia, no polyuria, no excessive sweating, no flushing Hematologic/Lymphatic: no easy bruising, no easy bleeding Allergic/Immunologic: no urticaria, no allergic rhinitis, no wheezing Exam - Constitutional Vitals: Temp Pulse Resp BP Pulse Ox 98.3 F 88 17 115/77 100 07/15/21 10:28 07/15/21 11:31 07/15/21 11:31 07/15/21 11:31 07/15/21 11:31 General appearance: Present: mild distress, obese - EENT Eyes: Present: PERRL (Conjunctival pallor) ENT: hearing intact, clear oral mucosa - Neck Neck: Present: supple, normal ROM - Respiratory Respiratory effort: normal Respiratory: bilateral: CTA - Cardiovascular Heart Sounds: Present: S1 & S2. Absent: rub, click - Extremities Extremities: pulses symmetrical, No edema Peripheral Pulses: within normal limits - Abdominal General gastrointestinal: Present: soft, non-tender, non-distended, normal bowel sounds Female genitourinary: Present: normal - Integumentary Integumentary: Present: clear, warm, dry - Musculoskeletal Musculoskeletal: gait normal, strength equal bilaterally - Psychiatric Psychiatric: appropriate mood/affect, intact judgment & insight - Neurologic Neurologic: CNII-XII intact, moves all extremities HEART Score - HEART Score Troponin: Troponin T < 0.010 ng/mL (0.00-0.029) 07/15/21 10:28 Results - Labs CBC & Chem 7: 07/15/21 10:28 07/15/21 10:28 Labs: Abnormal lab results 07/15/21 07/15/21 07/15/21 Range/Units 10:28 10: 10:28 RBC 2.90 L (3.65-5.03) M/mm3 Hgb 3.9 L* (10.1-14.3) gm/dl Hct 15.3 L* (30.3-42.9) % MCV 53 L (79-97) fl MCH 13 L (28-32) pg MCHC 26 L (30-34) % RDW 22.0 H (13.2-15.2) % Seg Neuts % (Manual) 89.0 H (40.0-70.0) % Lymphocytes % (Manual) 6.0 L (13.4-35.0) % Lymphocytes # (Manual) 0.5 L (1.2-5.4) K/mm3 D-Dimer 677.02 H (0-234) ng/mlDDU Carbon Dioxide 21 L (22-30) mmol/L Creatinine 0.5 L (0.6-1.2) mg/dL Glucose 110 H (65-100) mg/dL Crossmatch 07/15/21 Range/Units 11:29 RBC (3.65-5.03) M/mm3 Hgb (10.1-14.3) gm/dl Hct (30.3-42.9) % MCV (79-97) fl MCH (28-32) pg MCHC (30-34) % RDW (13.2-15.2) % Seg Neuts % (Manual) (40.0-70.0) % Lymphocytes % (Manual) (13.4-35.0) % Lymphocytes # (Manual) (1.2-5.4) K/mm3 D-Dimer (0-234) ng/mlDDU Carbon Dioxide (22-30) mmol/L Creatinine (0.6-1.2) mg/dL Glucose (65-100) mg/dL Crossmatch See Detail Assessment and Plan - Patient Problems (1) Angina at rest Current Visit: Yes Status: Acute Plan to address problem: ACS protocol: Serial cardiac enzymes, EKG, remote telemetry monitoring, VQ scan ordered and pending at time of admission, morphine, submental oxygen, nitro, aspirin, supportive care. Cardiology team consulted. (2) Menorrhagia Current Visit: Yes Status: Acute Qualifiers: Menorrhagia type: with regular cycle Qualified Code(s): N92.0 - Excessive and frequent menstruation with regular cycle Plan to address problem: Peripheral blood cell transfusion, outpatient [facility]LE[facility] follow-up. (3) Obesity hypoventilation syndrome Current Visit: Yes Status: Acute Plan to address problem: Balanced diet, increase physical activity discharge, outpatient pulmonary follow-up for sleep study (4) Symptomatic anemia Current Visit: Yes Status: Acute Plan to address problem: Diarrhea blood cell transfusion. CBC, repeat CBC in a.m. (5) DVT prophylaxis Current Visit: Yes Status: Acute Plan to address problem: SCDs bilateral lower extremities while in bed, hold anticoagulation due to blood loss anemia (6) Advance care planning Current Visit: Yes Status: Acute Plan to address problem: Disease education conducted, care plan discussed, diagnoses discussed, prognosis discussed, patient full code. Patient acknowledges understanding and agreement with care plan, patient counseled regarding outpatient [facility] follow-up for further care and evaluation of menorrhagia. Patient acknowledges understanding instructions. +30 minutes
[2021-07-15] MEDS ORDERED: ONDANSETRON 4 MG/2 ML INJ IV PRN (12:30)
[2021-07-15] MEDS ORDERED: ASPIRIN 81 MG TAB CHEW PO STA (12:30)
[2021-07-15] MEDS ORDERED: traMADol 50 MG TAB PO PRN (12:30)
[2021-07-15] MEDS ORDERED: ALBUTEROL 2.5 MG/3 ML NEBU IH PRN (12:30)
[2021-07-15] MEDS ORDERED: HYDROmorphone 1 MG/1 ML INJ IV PRN (12:30)
[2021-07-15] MEDS ORDERED: NITROGLYCERIN 0.4 MG TAB SUBL SL PRN (12:30)
[2021-07-15] MEDS ORDERED: ACETAMINOPHEN 325 MG TAB PO PRN ×2 (12:30)
[2021-07-15] MEDS ORDERED: MORPHINE 2 MG/1 ML INJ IV PRN (12:30)
[2021-07-15] MEDS ORDERED: SODIUM CHLORIDE 0.9% 500 ML 500 ML ONE (17:40)
--- NOTE | 2021-07-15 21:09 | Nuclear Medicine Report ---
NUCLEAR MEDICINE PERFUSION LUNG SCAN INDICATION: Chest pain. TECHNIQUE: 5.3 mCi of Tc-99m MAA were given by IV. COMPARISON: Chest radiograph dated 07/15/2021. FINDINGS: PERFUSION: No significant perfusion defects. ADDITIONAL FINDINGS: None. IMPRESSION: 1. Low probability for pulmonary embolism. Signer Name: Archie Pineda MD Signed: 07/15/2021 9:04 PM Workstation Name: [id number]
[2021-07-15] MEDS: FAMOTIDINE 20 MG TAB PO SCH (22:00)
[2021-07-15 23:30] LABS: Hematocrit 19.9 % (30.3-42.9); Hemoglobin 5.8 gm/dl (10.1-14.3)
[2021-07-16 07:42] LABS: Hematocrit 24.8 % (30.3-42.9); Hemoglobin 7.6 gm/dl (10.1-14.3)
[2021-07-16 07:43] LABS: Blood Urea Nitrogen 5 mg/dL (7-17); Calcium 9.4 mg/dL (8.4-10.2); Hemolysis Index 0
[2021-07-16 07:44] LABS: BUN/Creatinine Ratio 10
[2021-07-16] MEDS ORDERED: IRON PO SCH (10:00)
[2021-07-16] MEDS ORDERED: PRENATAL VIT27-FE FUMARATE-FOLIC ACID VIT TAB PO SCH (10:00)
[2021-07-16] MEDS ORDERED: PRENATAL PO SCH (10:00)
[2021-07-16] MEDS ORDERED: FOLIC ACID PO SCH (10:00)
[2021-07-16] MEDS ORDERED: FERROUS SULFATE 325 MG TAB PO SCH (10:00)
[2021-07-16] MEDS: FAMOTIDINE 20 MG TAB PO SCH (10:29)
--- NOTE | 2021-07-16 11:44 | Discharge Summary ---
Providers - Providers Date of Admission: 07/15/21 12:30 Date of discharge: 07/16/21 Attending physician: NOEL RESTREPO 07/15/21 Consult to Cardiac Rehabilitation [CONS] Routine Reason For Exam: Phase I Primary care physician: GIACOMO RAMIREZ MD Hospitalization Condition: Fair Disposition: 01 HOME / SELF CARE / HOMELESS Time spent for discharge: 34 minutes Core Measure Documentation - Palliative Care Palliative Care/ Comfort Measures: Not Applicable - Core Measures Any of the following diagnoses?: none Exam - Constitutional Vitals: Temp Pulse Resp BP Pulse Ox 98.6 F 81 18 129/79 99 07/16/21 07:45 07/16/21 10:00 07/16/21 07:45 07/16/21 07:45 07/16/21 10:00 Plan Activity: advance as tolerated Weight Bearing Status: Weight Bear as Tolerated Diet: low fat, low salt Additional Instructions: 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
[2021-07-16 12:31] VITALS: BP 102/60
--- NOTE | 2021-07-19 17:10 | Electrocardiograph Report ---
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
--- NOTE | 2021-07-19 17:19 | Electrocardiograph Report ---
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
--- NOTE | 2021-07-19 17:19 | Electrocardiograph Report ---
[facility] Test Date: 2021-07-16 Test Time: 07:31:41 Pat Name: CARRIE WEBB Department: Room: A484 1 Gender: F Futures Trader: DANYELLE : 1985 Requested By: BERENICE BLEDSOE Order Number: [id number] Reading MD: Spencer Huff Measurements Intervals [place] Rate: 84 P: 60 ID: [id number] QRS: -17 QRSD: 97 T: 44 QT: 382 QTc: 451 Interpretive Statements Sinus rhythm Probable left atrial enlargement Low voltage QRS Old anterolateral infarct Compared to ECG 07/15/2021 10:10:49 No significant change Electronically Signed On 07-19-2021 17:18:54 EST by Spencer Huff
== END 2021-07-16 16:45 | disposition home or self-care (01) | DRG 311 ==
LOC: ED 10:10 → 4A 12:30
PROVIDERS: ADMIT Internal Medicine; ATTEND Internal Medicine
PROC: 30233N1 Transfusion of Nonautologous Red Blood Cells into Peripheral Vein, Percutaneous Approach (ICD-10-PCS; principal; 2021-07-15)
DX: I20.8 Other forms of angina pectoris (principal); E66.2 Morbid (severe) obesity with alveolar hypoventilation; D62 Acute posthemorrhagic anemia; N92.0 Excessive and frequent menstruation with regular cycle; Z68.34 Body mass index [BMI] 34.0-34.9, adult; Z82.49 Family history of ischemic heart disease and other diseases of the circulatory system
CPT/HCPCS: 36415; 71045; 78580; 80048; 82271; 82550; 82553; 83690; 83735; 83880; 84439; 84443; 84484; 85007; 85014; 85018; 85025; 85379; 86850; 86900; 86901; 86920; 93005; 93010; 94760; G0378; A9540; J2270; J2405; J3010; J7040; P9016